=== PATIENT | female | born 1995 | race Caucasian/White ===

== ENCOUNTER 2020-06-26 15:32 | Emergency (ER) | payer MEDICAID ==
[~2020-06-26] VITALS: Ht 170.2 cm; Wt 59.0 kg
[2020-06-26] MEDS ORDERED: FAMOTIDINE 20MG/2ML VIAL IV STA (16:01)
[2020-06-26] MEDS ORDERED: SODIUM CHLORIDE 0.9% 1,000 ML IV ONE (16:15)
[2020-06-26 16:47] LABS: CLARITY URINE CLEAR (CLEAR); COLOR URINE YELLOW (YELLOW); KETONES URINE TRACE (NEGATIVE); LEUKOCYTE ESTERASE URINE NEGATIVE (NEGATIVE); NITRITE URINE NEGATIVE (NEGATIVE); OCCULT BLOOD URINE 3+ (NEGATIVE); PROTEIN URINE NEGATIVE (NEGATIVE)
[2020-06-26 16:49] LABS: BASOPHILS % 0.4 % (0.0-2.0); EOSINOPHILS % 1.4 % (0.0-5.0); HEMATOCRIT. 37.7 % (36.0-48.0); HEMOGLOBIN. 12.8 g/dL (12.0-16.0); LYMPHOCYTES % 23.6 % (20.0-50.0); MEAN CORPUSCULAR VOLUME 88.8 fL (81.0-99.0); MEAN PLATELET VOLUME 8.5 fl (7.4-10.4); MONOCYTES % 8.7 % (2.0-8.0); NEUTROPHILS % 65.9 % (40.0-76.0); PLATELET 403 x1000/uL (130-400); RED BLOOD CELL COUNT 4.25 mill/uL (4.2-5.4); RED CELL DISTRIBUTION WIDTH 14.4 % (11.6-14.6)
[2020-06-26 16:52] LABS: CHLORIDE 107 mEq/L (98-107)
[2020-06-26 16:55] LABS: ETHANOL BLOOD < 10 mg/dL; HCG SCREEN NEGATIVE
[2020-06-26 16:56] LABS: PROTHROMBIN TIME 10.2 sec (9.6-11.0)
[2020-06-26 17:10] LABS: *BARBITURATES SCREEN URINE NEGATIVE (NEGATIVE); *BENZODIAZEPINES SCREEN URINE NEGATIVE (NEGATIVE)
[2020-06-26 17:11] LABS: *AMPHETAMINES SCREEN URINE NEGATIVE (NEGATIVE); *COCAINE SCREEN URINE NEGATIVE (NEGATIVE); CANNABINOID URINE SCREEN NEGATIVE (NEGATIVE); METHADONE URINE SCREEN NEGATIVE (NEGATIVE); OPIATES URINE SCREEN NEGATIVE (NEGATIVE); PHENCYCLIDINE URINE SCREEN NEGATIVE (NEGATIVE)
[2020-06-26 19:13] VITALS: BP 127/60
== END 2020-06-26 19:16 | disposition home or self-care (01) ==
LOC: ER 15:32
DX: K80.50 Calculus of bile duct without cholangitis or cholecystitis without obstruction (principal)
CPT/HCPCS: 36415; 76705; 80053; 80305; 80320; 81003; 81025; 83690; 84703; 85025; 85610; 93005; 96361; 96374; 99285; J3490; J7030; G0480